=== PATIENT | female | born 1995 | race Two or more races ===

== ENCOUNTER 2023-09-15 17:31 | Emergency (ER) | payer OTHER ==
[~2023-09-15] VITALS: Ht 157.5 cm; Wt 75.5 kg
[2023-09-15 18:18] VITALS: BP 137/88; PULSE 84; RESP 18; TEMP 98.6; O2SAT 96
== END 2023-09-15 19:56 | disposition home or self-care (01) ==
LOC: ER 17:31
DX: R07.81 Pleurodynia (principal)
CPT/HCPCS: 71045